=== PATIENT | male | born 1990 | race Caucasian/White ===

== ENCOUNTER 2018-09-26 10:32 | Emergency (ER) | payer BC, OTHER ==
[2018-09-26 10:55] VITALS: BP 137/85
--- NOTE | 2018-09-26 11:24 | UC ---
UC General HPI - HPI Summary HPI Summary: 4 day hx nasal congestion, sore throat and cough with congestion. no fever, sob or asthma. tx with dayquil or nyquil but not sure which one of the 2. - History of Current Complaint Chief Complaint: UCRespiratory Stated Complaint: SORE THROAT Time Seen by Provider: 09/26/18 10:51 Hx Obtained From: Patient Onset/Duration: Gradual Onset Timing: Constant Pain Intensity: 0 Associated Signs & Symptoms: Positive: Cough. Negative: Chest Pain, Fever, SOB , Wheezing - Allergy/Home Medications Allergies/Adverse Reactions: Allergies Allergy/AdvReac Type Severity Reaction Status Date / Time No Known Allergies Allergy Verified 09/26/18 10:49 Home Medications: Home Medications Dm/Acetaminophen/Doxylamine [Nighttime Cold-Flu Liquid] 1 dose PO ONCE 09/26/18 [History Confirmed 09/26/18] PMH/Surg Hx/FS Hx/Imm Hx Previously Healthy: Yes - Surgical History Surgical History: Yes Surgery Procedure, Year, and Place: undescended testicle as child - Family History Known Family History: Positive: Non-Contributory - Social History Occupation: Employed Full-time Alcohol Use: Daily Alcohol Amount: 4-5 beers Substance Use Type: None Smoking Status (MU): Never Smoked Tobacco Type: Smokeless Tobacco Amount Used/How Often: 1 can every 2 days - Immunization History Vaccination Up to Date: Yes Review of Systems All Other Systems Reviewed And Are Negative: Yes Constitutional: Positive: Negative Skin: Positive: Negative Eyes: Positive: Negative ENT: Positive: Sore Throat, Nasal Discharge, Sinus Congestion. Negative: Sinus Pain/Tenderness Respiratory: Positive: Cough. Negative: Shortness Of Breath Cardiovascular: Positive: Negative Gastrointestinal: Positive: Negative Genitourinary: Positive: Negative Motor: Positive: Negative Neurovascular: Positive: Negative Musculoskeletal: Positive: Negative Neurological: Positive: Negative Psychological: Positive: Negative Is Patient Immunocompromised?: No Physical Exam Triage Information Reviewed: Yes Appearance: Well-Appearing Vital Signs: Initial Vital Signs Temp 99.2 F 09/26/18 10:50 Pulse 69 09/26/18 10:50 Resp 17 09/26/18 10:50 BP 137/85 09/26/18 10:50 Pulse Ox 98 09/26/18 10:50 Vital Signs Reviewed: Yes Eyes: Positive: Conjunctiva Clear ENT: Positive: Pharyngeal erythema - slight, Nasal congestion, TMs normal, Uvula midline. Negative: Nasal drainage, Tonsillar swelling, Tonsillar exudate , Trismus, Muffled voice, Hoarse voice, Sinus tenderness Neck: Positive: Supple, Nontender, No Lymphadenopathy Respiratory: Positive: Lungs clear, Normal breath sounds, No respiratory distress Cardiovascular: Positive: RRR, No Murmur Abdomen Description: Positive: Nontender, No Organomegaly, Soft Bowel Sounds: Positive: Present Musculoskeletal: Positive: ROM Intact Neurological: Positive: Alert Psychological: Positive: Age Appropriate Behavior Skin Exam: Normal Course/Dx - Differential Dx - Multi-Symptom Differential Diagnoses: Other - viral uri, sinusitis, pharyngitis, bronchitis, pneumonia. - Diagnoses Provider Diagnosis: URI (upper respiratory infection), Bronchitis Discharge - Sign-Out/Discharge Documenting (check all that apply): Post-Discharge Follow Up All imaging exams completed and their final reports reviewed: No Studies - Discharge Plan Condition: Stable Disposition: HOME Patient Education Materials: Upper Respiratory Infection (DC), Acute Bronchitis (ED) Referrals: EDDIE Iverson [Medical Doctor] - 7 Days - Billing Disposition and Condition Condition: STABLE Disposition: Home
== END 2018-09-26 11:41 | disposition home or self-care (01) ==
LOC: UCCORT 10:32
DX: J06.9 Acute upper respiratory infection, unspecified (principal); J40 Bronchitis, not specified as acute or chronic; F17.220 Nicotine dependence, chewing tobacco, uncomplicated
CPT/HCPCS: 87651; 99201; G0463

== ENCOUNTER 2018-10-09 14:28 | Emergency (ER) | payer OTHER ==
[2018-10-09 15:07] VITALS: BP 141/60
--- NOTE | 2018-10-09 15:50 | UC ---
Throat Pain/Nasal Aníbal HPI - HPI Summary HPI Summary: Pt presents with c/o ST, cough, malaise and fatigue that has worsened over the two weeks. - History of Current Complaint Chief Complaint: UCGeneralIllness Stated Complaint: RECHECK SORE THROAT Time Seen by Provider: 10/09/18 15:42 Hx Obtained From: Patient Onset/Duration: Gradual Onset, Worse Since - onset Severity: Moderate Pain Intensity: 6 Cough: Nonproductive Associated Signs & Symptoms: Positive: Dysphagia, Fever - subjective - Epiglottits Risk Factors Epiglottis Risk Factors: Negative - Allergies/Home Medications Allergies/Adverse Reactions: Allergies Allergy/AdvReac Type Severity Reaction Status Date / Time No Known Allergies Allergy Verified 10/09/18 14:59 Home Medications: Home Medications D-Methorphan/PE/Acetaminophen [Daytime Cold-Flu Relief Softgl] 1 each PO DAILY PRN 10/09/18 [History Confirmed 10/09/18] Ibuprofen TAB* [Advil TAB*] 400 mg PO Q6H PRN 10/09/18 [History Confirmed ] Pseudoephedrine HCl [Sudafed 24-Hour] 240 mg PO DAILY PRN 10/09/18 [History Confirmed 10/09/18] PMH/Surg Hx/FS Hx/Imm Hx Previously Healthy: Yes - Surgical History Surgical History: Yes Surgery Procedure, Year, and Place: undescended testicle as child - Family History Known Family History: Positive: Non-Contributory - Social History Occupation: Employed Full-time Lives: With Family Alcohol Use: Daily Alcohol Amount: 4-5 beers Substance Use Type: None Smoking Status (MU): Never Smoked Tobacco Type: Smokeless Tobacco Amount Used/How Often: 1 can every 2 days Have You Smoked in the Last Year: No - Immunization History Vaccination Up to Date: Yes Review of Systems All Other Systems Reviewed And Are Negative: Yes Constitutional: Positive: Fever, Chills, Fatigue Skin: Positive: Negative Eyes: Positive: Negative ENT: Positive: Sore Throat, Sinus Congestion Respiratory: Positive: Cough Cardiovascular: Positive: Negative Gastrointestinal: Positive: Negative Genitourinary: Positive: Negative Motor: Positive: Negative Neurovascular: Positive: Negative Musculoskeletal: Positive: Myalgia Neurological: Positive: Negative Psychological: Positive: Negative Is Patient Immunocompromised?: No Physical Exam Triage Information Reviewed: Yes Appearance: Ill-Appearing Vital Signs: Initial Vital Signs Temp 98 F 10/09/18 15:02 Pulse 85 10/09/18 15:02 Resp 14 10/09/18 15:02 BP 141/60 10/09/18 15:02 Pulse Ox 100 10/09/18 15:02 Vital Signs Reviewed: Yes Eye Exam: Normal ENT: Positive: Nasal congestion Dental Exam: Normal Neck exam: Normal Respiratory Exam: Normal Cardiovascular Exam: Normal Musculoskeletal Exam: Normal Neurological Exam: Normal Psychological Exam: Normal Skin Exam: Normal Diagnostics - Laboratory Diagnostic Studies Completed/Ordered: rapid strep: negative Throat Pain/Nasal Course/Dx - Differential Dx/Diagnosis Differential Diagnosis/HQI/PQRI: Pharyngitis, Tonsillitis, URI Provider Diagnosis: Bronchitis Discharge - Sign-Out/Discharge Documenting (check all that apply): Patient Departure All imaging exams completed and their final reports reviewed: No Studies - Discharge Plan Condition: Stable Disposition: HOME Prescriptions: Azithromycin TAB* [Zithromax TAB (Z-STEPHANY) 250 mg #6 tabs] 2 tab PO .TODAY, THEN 1 DAILY #1 stephany predniSONE TAB* [Deltasone 20 MG TAB*] 20 mg PO DAILY #4 tab Patient Education Materials: Acute Bronchitis (ED) Referrals: No Primary Care Phys,NOPCP [Primary Care Provider] - [facility] [Outside] - If Needed - Billing Disposition and Condition Condition: STABLE Disposition: Home - Attestation Statements Provider Attestation: I was available for consult. This patient was seen by the DON. The patient was not presented to, seen by, or examined by me. EK
== END 2018-10-09 16:13 | disposition home or self-care (01) ==
LOC: UCCORT 14:28
DX: J40 Bronchitis, not specified as acute or chronic (principal); F17.220 Nicotine dependence, chewing tobacco, uncomplicated
CPT/HCPCS: 87651; 99212; G0463